=== PATIENT | male | born 1955 | race Caucasian/White ===

== ENCOUNTER 2018-08-23 19:09 | Emergency (ER) | payer OTHER ==
[~2018-08-23] VITALS: Ht 160 cm; Wt 76.2 kg
[~2018-08-23 19:09] MED LIST: GLIP5TAB13 PO; HYDR25TA6 PO; METF500T24 PO; POLY17PO6 PO
[2018-08-23 19:29] VITALS: Ht 160 cm; Wt 76.2 kg
[2018-08-23] MEDS ORDERED: KETOROLAC 60 MG INJ IM STA (22:56)
[2018-08-23] MEDS ORDERED: HYDROCODONE/APAP (5/325) TAB PO ONE (23:00)
--- NOTE | 2018-08-23 23:12 | ERD ---
ER Documentation Chief Complaint Chief Complaint R CWP S/P GLF HPI 63-year-old male presents complaint of chest wall pain. States that he fell Wednesday afternoon on his chest and he has been having pain in the right rib cage area. He also states that it hurts when he breathes. Denies any treatments. States the pain is sharp and intermittent in nature. Pain is made worse with palpation. Denies any hemoptysis, shortness of breath, wheezing, diaphoresis, leg swelling. ROS All systems reviewed and are negative except as per history of present illness. Medications Home Meds Active Scripts Polyethylene Glycol* (Miralax*) 17 Gm Powd.pack, 17 GM PO DAILY PRN for CONSTIPATION, #7 Prov:SABINO NEUMANN MD 03/22/16 Hydrochlorothiazide* (Hydrochlorothiazide*) 25 Mg Tab, 25 MG PO DAILY, #30 TAB Prov:DAMON BRUCE MD 03/11/16 Reported Medications Metformin Hcl* (Metformin Hcl*) 500 Mg Tablet, 500 MG PO BID WITH MEALS, TAB 10/23/13 Glipizide* (Glipizide*) 5 Mg Tablet, 5 MG PO AC BREAKFAST, TAB 10/23/13 Allergies Allergies: Coded Allergies: No Known Allergy (Unverified , 03/22/16) PMhx/Soc Medical and Surgical Hx: pt denies Surgical Hx History of Surgery: No Anesthesia Reaction: No Hx Neurological Disorder: No Hx Respiratory Disorders: No Hx Cardiac Disorders: No Hx Psychiatric Problems: No Hx Miscellaneous Medical Probl: No Hx Alcohol Use: No Hx Substance Use: No Hx Tobacco Use: No Smoking Status: Never smoker Physical Exam Vitals Vital Signs Date Temp Pulse Resp B/P (MAP) Pulse Ox O2 O2 Flow FiO2 Time Delivery Rate 08/23/18 98.4 69 20 136/77 99 19:29 (96) Physical Exam Const: No acute distress Head: Atraumatic Eyes: Normal Conjunctiva ENT: Normal External Ears, Nose and Mouth. Neck: Full range of motion. No meningismus. No JVD. Resp: Clear to auscultation bilaterally. Tender to palpation over the right anterior rib cage. There is no edema, erythema, or bony deformity noted. Overlying skin is intact. Cardio: Regular rate and rhythm, no murmurs Abd: Soft, non tender, non distended. Normal bowel sounds Skin: No petechiae or rashes Back: No midline or flank tenderness Ext: No cyanosis, or edema Neur: Awake and alert Psych: Normal Mood and Affect Results 24 hrs Current Medications Medications Dose Sig/Wyatt Start Time Status Last (Trade) Ordered Route PRN Stop Time Admin Dose Reason Admin Ketorolac 60 mg ONCE STAT 08/23/18 DC 08/23/18 Tromethamine IM 22:56 23:12 (Toradol) 08/23/18 22:59 1 tab ONCE ONCE 08/23/18 DC 08/23/18 Acetaminophen PO 23:00 23:11 / 08/23/18 23:01 Hydrocodone Bitart (Saffell (5/325)) Procedures/MDM DIAGNOSTIC IMAGING REPORT Patient: DAYANARA HAILE : 1955 Age: 63 Sex: M MR #: [id number] DOS: 08/23/186 Ordering MD: SONU OLIVER Location: [facility] Room/Bed: PROCEDURE: XR Ribs. 4 views CLINICAL INDICATION: Bilateral rib pain. Trauma. TECHNIQUE: Oblique views of the right and left ribs were obtained. COMPARISON: Chest performed at the same time. FINDINGS: Cardiac/vascular structures: Normal cardiomediastinal silhouette. Pulmonary: Lungs are clear. No pleural effusion. No evidence of pneumothorax. Osseous structures: No evidence of fracture or dislocation. Soft tissues: Normal IMPRESSION: No rib fracture. RPTAT:AAJJ Physician Oskar Date Time Electronically viewed and signed by Physician Oskar on 08/23/2018 23:52 MH/ CC: SONU OLIVER [phone] DIAGNOSTIC IMAGING REPORT Patient: DAYANARA HAILE : 1955 Age: 63 Sex: M MR #: [id number] DOS: 08/23/186 Ordering MD: SONU OLIVER Location: [facility] Room/Bed: PROCEDURE: XR Chest. CLINICAL INDICATION: Chest pain. Trauma. TECHNIQUE: Single portable view of the chest was obtained. COMPARISON: 07/19/2018 FINDINGS: Cardiac/vascular structures: Normal cardiomediastinal silhouette. Pulmonary: Lungs are clear. No pleural effusion. No evidence of pneumothorax. Osseous structures: Normal Soft tissues: Normal IMPRESSION: No acute cardiopulmonary disease. RPTAT:AAJJ Physician Oskar Date Time Electronically viewed and signed by Ivy Johnson Physician on 08/23/2018 23:51 MH/ CC: SONU OLIVER [phone] MDM: Chest x-ray performed as well as rib x-ray and both were within normal limits. Patient most likely suffering from contusion of ribs. Advised patient to rest and use ibuprofen as needed. I will suspicion for pneumothorax, flail chest, or any other emergent condition. Patient discharged with strict ER precautions. Patient advised to follow up with PMD. All questions answered at discharge. Departure Diagnosis: Primary Impression: Rib contusion Encounter type: initial encounter Laterality: right Qualified Codes: S20.211A - Contusion of right front wall of thorax, initial encounter Condition: Stable SONU OLIVER Aug 23, 2018 23:12
[2018-08-24] MEDS ORDERED: IBUP-1542 PO (00:24)
[2018-08-24 00:34] VITALS: BP 158/61; PULSE 84; RESP 18
== END 2018-08-24 00:35 | disposition home or self-care (01) ==
LOC: FTE 19:09
DX: S20.211A Contusion of right front wall of thorax, initial encounter (principal); W18.30XA Fall on same level, unspecified, initial encounter; Y92.9 Unspecified place or not applicable; Z79.84 Long term (current) use of oral hypoglycemic drugs
CPT/HCPCS: 71045; 71100; 96372; J1885; Z7502; Z7610